=== PATIENT | male | born 2000 | race African-American/Black ===

== ENCOUNTER 2018-09-24 18:06 | Emergency (ER) | payer OTHER ==
[~2018-09-24] VITALS: Ht 182.9 cm; Wt 90.9 kg
[2018-09-24] MEDS ORDERED: PredniSONE 20 MG TABLET PO ONE (19:15)
[2018-09-24] MEDS ORDERED: IPRATROPIUM BROMIDE 0.5 MG/2.5 ML NEB SOLUTION NEB ONE (19:15)
[2018-09-24] MEDS ORDERED: IBUPROFEN 800 MG TABLET PO ONE (19:15)
[2018-09-24] MEDS ORDERED: ALBUTEROL SULFATE 5 MG/ML 20 ML NEB SOLN [BULK] NEB ONE (19:15)
[2018-09-24] MEDS ORDERED: 0.9% SODIUM CHLORIDE 5 ML NEB SOLUTION NEB ONE (19:43)
[2018-09-24 21:27] LABS: INFLUENZA TYPE A NEGATIVE FOR TYPE A (NEGATIVE); INFLUENZA TYPE B POSITIVE FOR TYPE B (NEGATIVE)
[2018-09-24 23:21] VITALS: BP 131/65
== END 2018-09-24 23:23 | disposition home or self-care (01) ==
LOC: EMS 18:09
DX: J45.901 Unspecified asthma with (acute) exacerbation (principal); J11.1 Influenza due to unidentified influenza virus with other respiratory manifestations; F17.210 Nicotine dependence, cigarettes, uncomplicated; Z91.010 Allergy to peanuts
CPT/HCPCS: 87430; 87804; 94644; 99285; 99406; J7512